=== PATIENT | female | born 1950 | race Caucasian/White ===

== ENCOUNTER 2018-06-06 19:48 | Inpatient (IN) | payer MEDICARE ==
[~2018-06-06] VITALS: Ht 167.6 cm; Wt 60.0 kg
[2018-06-06 20:26] LABS: HCT (SEDRATE) 48.3 % (34.6-47.8)
[2018-06-06 20:27] LABS: ALANINE AMINOTRANSFERASE 36 U/L (12-78); ANION GAP 5 mmol/L (5-15); BASOPHILS # (AUTO) 0.26 x10^3/uL (0-0.1); BASOPHILS % (AUTO) 2 % (0-1); C-REACTIVE PROTEIN, QUANT 0.13 mg/dL (0.02-0.49); CALCIUM 8.6 mg/dL (8.5-10.1); CHLORIDE 107 mmol/L (98-107); CREATININE 0.85 mg/dL (0.55-1.02); EOSINOPHILS # (AUTO) 0.22 x10^3/uL (0-0.4); EOSINOPHILS % (AUTO) 2 % (1-7); LYMPHOCYTES # (AUTO) 3.24 x10^3/uL (1-3.4); LYMPHOCYTES % (AUTO) 27 % (22-44); MD NO; MEAN CORPUSCULAR HEMOGLOBIN 32.2 pg (27.0-34.8); MEAN CORPUSCULAR HGB CONC 34.1 g/dL (32.4-35.8); MEAN CORPUSCULAR VOLUME 94.6 fL (80-100); MEAN PLATELET VOLUME 8.7 fL (7.4-10.4); MONOCYTES # (AUTO) 0.99 x10^3/uL (0.2-0.8); MONOCYTES % (AUTO) 8 % (2-9); NEUTROPHILS # (AUTO) 7.38 x10^3/uL (1.8-6.8); NEUTROPHILS % (AUTO) 61 % (42-75); PLATELET COUNT 261 x10^3/uL (130-400); RED BLOOD COUNT 5.09 x10^6/uL (3.82-5.3); RED CELL DISTRIBUTION WIDTH 13.6 % (9.6-15.2)
[2018-06-06 20:30] LABS: ALKALINE PHOSPHATASE 110 U/L (45-117); BILIRUBIN,TOTAL 0.6 mg/dL (0.2-1.0); TOTAL PROTEIN 6.8 g/dL (6.4-8.2)
[2018-06-06] MEDS ORDERED: ALPR-475 PO (21:09)
[2018-06-06] MEDS ORDERED: OXYC10TA6 PO (21:09)
[2018-06-06] MEDS ORDERED: MORP30TA81 PO (21:10)
[2018-06-06] MEDS ORDERED: RIVA20TA PO (21:10)
[2018-06-06] MEDS ORDERED: HYDR25TA6 PO (21:10)
[2018-06-06] MEDS ORDERED: METF500T17 PO (21:10)
[2018-06-06] MEDS ORDERED: METO25TA35 PO (21:10)
[2018-06-06] MEDS ORDERED: ENAL20TA PO (21:10)
[2018-06-06] MEDS ORDERED: DRON400T PO (21:30)
[2018-06-06] MEDS ORDERED: SODIUM CHLORIDE FLUSH 10ML SYR IVF PRN (22:00)
[2018-06-06 23:00] VITALS: BP 113/65
[2018-06-06] MEDS ORDERED: ENALAPRILAT 1.25 MG/ML, 2ML IVPush PRN (23:00)
[2018-06-06] MEDS ORDERED: ENOXAPARIN 40 MG/0.4 ML SQ SCH (23:00)
[2018-06-06] MEDS ORDERED: ONDANSETRON ODT 4 MG PO PRN (23:00)
[2018-06-06] MEDS ORDERED: ACETAMINOPHEN 325 MG TABLET PO PRN (23:00)
[2018-06-06] MEDS ORDERED: CEFTRIAXONE PMX 1GM/50ML 50 ML IV SCH (23:00)
[2018-06-06] MEDS ORDERED: DOCUSATE 100 MG CAPSULE PO PRN (23:00)
[2018-06-06] MEDS ORDERED: ENOXAPARIN MC SCH (23:30)
[2018-06-06] MEDS ORDERED: RIVAROXABAN MC SCH (23:30)
[2018-06-06] MEDS: METOPROLOL TARTRATE 25 MG TABLET PO SCH (23:55)
[2018-06-06] MEDS: ENALAPRIL 20MG TABLET PO SCH (23:55)
[2018-06-07] MEDS: DRONEDARONE 400MG TABLET PO SCH ×3 (00:08→20:16)
[2018-06-07 01:17] VITALS: BP 129/74
[2018-06-07 06:51] VITALS: BP 105/63
[2018-06-07] MEDS: ENALAPRIL 20MG TABLET PO SCH ×2 (08:36→20:16)
[2018-06-07] MEDS: HYDROCHLOROTHIAZIDE 25 MG TABLET PO SCH (08:36)
[2018-06-07] MEDS: METOPROLOL TARTRATE 25 MG TABLET PO SCH ×2 (08:36→20:15)
[2018-06-07] MEDS: OXYcodone IR 5MG TABLET PO SCH ×2 (08:50→20:55)
[2018-06-07] MEDS ORDERED: RIVAROXABAN 20 MG TABLET PO SCH (09:00)
[2018-06-07 10:51] LABS: CHLORIDE 107 mmol/L (98-107)
[2018-06-07 10:52] LABS: BASOPHILS # (AUTO) 0.06 x10^3/uL (0-0.1); BASOPHILS % (AUTO) 1 % (0-1); EOSINOPHILS # (AUTO) 0.23 x10^3/uL (0-0.4); EOSINOPHILS % (AUTO) 2 % (1-7); LYMPHOCYTES % (AUTO) 20 % (22-44); MD NO; MEAN CORPUSCULAR HEMOGLOBIN 31.7 pg (27.0-34.8); MEAN CORPUSCULAR HGB CONC 33.4 g/dL (32.4-35.8); MEAN CORPUSCULAR VOLUME 94.9 fL (80-100); MEAN PLATELET VOLUME 8.4 fL (7.4-10.4); MONOCYTES # (AUTO) 0.64 x10^3/uL (0.2-0.8); MONOCYTES % (AUTO) 7 % (2-9); NEUTROPHILS # (AUTO) 6.65 x10^3/uL (1.8-6.8); NEUTROPHILS % (AUTO) 70 % (42-75); PLATELET COUNT 238 x10^3/uL (130-400); RED BLOOD COUNT 4.78 x10^6/uL (3.82-5.3); RED CELL DISTRIBUTION WIDTH 13.4 % (9.6-15.2)
[2018-06-07] MEDS ORDERED: DEXTROSE 4 GM TAB.CHEW PO PRN (11:00)
[2018-06-07] MEDS: INSULIN LISPRO 100 UNITS/ML, PEN SQ-INSULIN SCH ×3 (11:00→20:54)
[2018-06-07] MEDS: SODIUM CHLORIDE FLUSH 10ML SYR IVF SCH ×2 (11:00→20:17)
[2018-06-07] MEDS ORDERED: GLUCAGON 1 MG IM PRN (11:00)
[2018-06-07] MEDS ORDERED: DEXTROSE 50%, 50ML SYRINGE IVPush PRN (11:00)
[2018-06-07 11:07] LABS: ALANINE AMINOTRANSFERASE 34 U/L (12-78); ALBUMIN 2.8 g/dL (3.4-5.0); ALKALINE PHOSPHATASE 97 U/L (45-117); ANION GAP 6 mmol/L (5-15); BILIRUBIN,TOTAL 0.6 mg/dL (0.2-1.0); C-REACTIVE PROTEIN, QUANT 0.08 mg/dL (0.02-0.49); CALCIUM 8.4 mg/dL (8.5-10.1); CREATININE 0.74 mg/dL (0.55-1.02); TOTAL PROTEIN 6.4 g/dL (6.4-8.2)
[2018-06-07] MEDS ORDERED: PHARMACOKINETIC CONSULTATION MC ONE (11:30)
[2018-06-07] MEDS ORDERED: PHARMACOKINETIC MONITORING MC PRN (11:30)
[2018-06-07] MEDS ORDERED: VANCOMYCIN PER PHARMACY MC PRN (12:00)
[2018-06-07 12:30] LABS: HEMOGLOBIN A1C 8.4 % (4.2-6.3)
[2018-06-07] MEDS: AMPICILLIN/SULBACTAM 3 GM in SODIUM CHLORIDE 0.9% 100 ML IV SCH ×2 (12:33→18:32)
[2018-06-07 13:54] VITALS: BP 119/74
[2018-06-07] MEDS: VANCOMYCIN 1,200 MG in SODIUM CHLORIDE 0.9% 250 ML IV SCH ×2 (13:59→14:29)
[2018-06-07 19:33] VITALS: BP 139/64
[2018-06-08] MEDS: AMPICILLIN/SULBACTAM 3 GM in SODIUM CHLORIDE 0.9% 100 ML IV SCH ×4 (00:48→19:30)
[2018-06-08 03:57] VITALS: BP 147/63
[2018-06-08] MEDS: INSULIN LISPRO 100 UNITS/ML, PEN SQ-INSULIN SCH ×4 (06:27→21:08)
[2018-06-08 07:17] VITALS: BP 137/65
[2018-06-08] MEDS: SODIUM CHLORIDE FLUSH 10ML SYR IVF SCH ×2 (09:00→20:57)
[2018-06-08 09:43] LABS: INTERNATIONAL NORMALIZED RATIO 1.16 (0.93-1.1); PROTHROMBIN TIME 11.9 Seconds (9.6-11.5)
[2018-06-08] MEDS: DRONEDARONE 400MG TABLET PO SCH ×2 (09:45→20:58)
[2018-06-08] MEDS: OXYcodone IR 5MG TABLET PO SCH ×2 (09:45→20:58)
[2018-06-08] MEDS: ENALAPRIL 20MG TABLET PO SCH ×2 (09:46→20:58)
[2018-06-08] MEDS: METOPROLOL TARTRATE 25 MG TABLET PO SCH ×2 (09:46→20:58)
[2018-06-08] MEDS: HYDROCHLOROTHIAZIDE 25 MG TABLET PO SCH (09:47)
[2018-06-08] MEDS ORDERED: DEXAMETHASONE 4 MG/ML, 1ML ONE (11:45)
[2018-06-08] MEDS ORDERED: PROPOFOL 10 MG/ML, 20ML ONE (11:45)
[2018-06-08] MEDS ORDERED: ONDANSETRON 2MG/ML, 2ML ONE (11:45)
[2018-06-08] MEDS ORDERED: FENTANYL PF 100 MCG/2ML ONE (11:46)
[2018-06-08] MEDS ORDERED: ALBUTEROL SULFATE 2.5 MG/3 ML NPPB PRN (12:30)
[2018-06-08] MEDS ORDERED: PROMETHAZINE 25 MG/ML, 1ML IV PRN (12:30)
[2018-06-08] MEDS ORDERED: HYDROmorphone 1 MG/ML, 1ML IV PRN (12:30)
[2018-06-08] MEDS ORDERED: OXYcodone 5 MG/5 ML ORAL.SOL UDC PO PRN (12:30)
[2018-06-08] MEDS ORDERED: ACETAMINOPHEN 325 MG TABLET PO PRN (12:30)
[2018-06-08] MEDS ORDERED: FENTANYL PF 100 MCG/2ML IV PRN (12:30)
[2018-06-08] MEDS ORDERED: hydrALAzine 20 MG/ML, 1ML IV PRN (12:30)
[2018-06-08] MEDS ORDERED: LABETALOL 5MG/ML, 20ML IV PRN (12:30)
[2018-06-08] MEDS ORDERED: OXYcodone 5 MG/5 ML ORAL.SOL UDC ONE (12:51)
[2018-06-08] MEDS: VANCOMYCIN 1,200 MG in SODIUM CHLORIDE 0.9% 250 ML IV SCH (15:02)
[2018-06-08 19:09] VITALS: BP 117/46
[2018-06-08 23:45] VITALS: BP 141/80
[2018-06-09] MEDS: AMPICILLIN/SULBACTAM 3 GM in SODIUM CHLORIDE 0.9% 100 ML IV SCH (01:48)
[2018-06-09 03:55] VITALS: BP 110/60
[2018-06-09 07:27] VITALS: BP 126/66
[2018-06-09] MEDS: RIVAROXABAN 20 MG TABLET PO SCH (08:26)
[2018-06-09] MEDS: PIPERACILLIN/TAZO/PMX 3.375GM 50 ML IV SCH ×3 (08:26→20:18)
[2018-06-09] MEDS: OXYcodone IR 5MG TABLET PO SCH ×2 (08:26→20:19)
[2018-06-09] MEDS: DRONEDARONE 400MG TABLET PO SCH ×2 (08:26→20:20)
[2018-06-09] MEDS: ENALAPRIL 20MG TABLET PO SCH ×2 (08:27→20:22)
[2018-06-09] MEDS: METOPROLOL TARTRATE 25 MG TABLET PO SCH ×2 (08:27→20:19)
[2018-06-09] MEDS: HYDROCHLOROTHIAZIDE 25 MG TABLET PO SCH (08:27)
[2018-06-09] MEDS: INSULIN LISPRO 100 UNITS/ML, PEN SQ-INSULIN SCH ×4 (08:28→20:24)
[2018-06-09] MEDS: SODIUM CHLORIDE FLUSH 10ML SYR IVF SCH ×2 (08:29→20:18)
[2018-06-09] MEDS: INSULIN GLARGINE 100 UNITS/ML, PEN SQ-INSULIN SCH ×2 (09:25→20:23)
[2018-06-09] MEDS: GABAPENTIN 100 MG CAPSULE PO SCH ×3 (09:26→20:19)
[2018-06-09] MEDS: VANCOMYCIN 1,200 MG in SODIUM CHLORIDE 0.9% 250 ML IV SCH (14:24)
[2018-06-09 15:00] VITALS: BP 90/47
[2018-06-09 18:42] VITALS: BP 119/60
[2018-06-10 00:11] VITALS: BP 134/65
[2018-06-10] MEDS: PIPERACILLIN/TAZO/PMX 3.375GM 50 ML IV SCH ×4 (02:33→20:40)
[2018-06-10 05:06] LABS: BASOPHILS % (AUTO) 1 % (0-1); EOSINOPHILS # (AUTO) 0.17 x10^3/uL (0-0.4); EOSINOPHILS % (AUTO) 1 % (1-7); LYMPHOCYTES # (AUTO) 3.75 x10^3/uL (1-3.4); LYMPHOCYTES % (AUTO) 31 % (22-44); MD NO; MEAN CORPUSCULAR HEMOGLOBIN 31.7 pg (27.0-34.8); MEAN CORPUSCULAR HGB CONC 33.6 g/dL (32.4-35.8); MEAN CORPUSCULAR VOLUME 94.3 fL (80-100); MEAN PLATELET VOLUME 8.6 fL (7.4-10.4); MONOCYTES # (AUTO) 0.87 x10^3/uL (0.2-0.8); MONOCYTES % (AUTO) 7 % (2-9); NEUTROPHILS # (AUTO) 7.12 x10^3/uL (1.8-6.8); NEUTROPHILS % (AUTO) 59 % (42-75); PLATELET COUNT 229 x10^3/uL (130-400); RED BLOOD COUNT 4.88 x10^6/uL (3.82-5.3); RED CELL DISTRIBUTION WIDTH 13.6 % (9.6-15.2)
[2018-06-10 05:09] LABS: CREATININE 0.64 mg/dL (0.55-1.02)
[2018-06-10] MEDS: INSULIN LISPRO 100 UNITS/ML, PEN SQ-INSULIN SCH ×4 (06:30→20:46)
[2018-06-10 07:24] VITALS: BP 134/81
[2018-06-10] MEDS: DRONEDARONE 400MG TABLET PO SCH ×2 (08:10→20:43)
[2018-06-10] MEDS: SODIUM CHLORIDE FLUSH 10ML SYR IVF SCH ×2 (08:10→20:44)
[2018-06-10] MEDS: GABAPENTIN 300 MG CAPSULE PO SCH ×3 (08:10→20:42)
[2018-06-10] MEDS: HYDROCHLOROTHIAZIDE 25 MG TABLET PO SCH (08:11)
[2018-06-10] MEDS: METOPROLOL TARTRATE 25 MG TABLET PO SCH ×2 (08:11→20:41)
[2018-06-10] MEDS: ENALAPRIL 20MG TABLET PO SCH ×2 (08:11→20:41)
[2018-06-10] MEDS: RIVAROXABAN 20 MG TABLET PO SCH (08:11)
[2018-06-10] MEDS: OXYcodone IR 5MG TABLET PO SCH ×2 (08:11→20:45)
[2018-06-10] MEDS: INSULIN GLARGINE 100 UNITS/ML, PEN SQ-INSULIN SCH ×2 (08:12→20:45)
[2018-06-10 13:43] VITALS: BP 130/60
[2018-06-10] MEDS: VANCOMYCIN 1,200 MG in SODIUM CHLORIDE 0.9% 250 ML IV SCH (14:44)
[2018-06-10 19:52] VITALS: BP 130/82
[2018-06-10 21:57] LABS: CLOSTRIDIUM DIFFICILE ANTIGEN POSITIVE; CLOSTRIDIUM DIFFICILE TOXIN NEGATIVE (Negative)
[2018-06-11] MEDS: VANCOMYCIN PMX 1GM/200ML 200 ML IV SCH ×2 (02:00→14:26)
[2018-06-11] MEDS: PIPERACILLIN/TAZO/PMX 3.375GM 50 ML IV SCH ×4 (03:18→20:51)
[2018-06-11 04:07] VITALS: BP 139/83
[2018-06-11] MEDS: LACTOBACILLUS CHEW TABLET PO SCH ×4 (04:48→20:49)
[2018-06-11 05:25] LABS: BASOPHILS # (AUTO) 0.07 x10^3/uL (0-0.1); BASOPHILS % (AUTO) 1 % (0-1); EOSINOPHILS % (AUTO) 2 % (1-7); LYMPHOCYTES % (AUTO) 32 % (22-44); MD NO; MEAN CORPUSCULAR HEMOGLOBIN 31.4 pg (27.0-34.8); MEAN CORPUSCULAR HGB CONC 33.5 g/dL (32.4-35.8); MEAN CORPUSCULAR VOLUME 93.8 fL (80-100); MEAN PLATELET VOLUME 8.3 fL (7.4-10.4); MONOCYTES # (AUTO) 0.78 x10^3/uL (0.2-0.8); MONOCYTES % (AUTO) 8 % (2-9); NEUTROPHILS # (AUTO) 5.28 x10^3/uL (1.8-6.8); NEUTROPHILS % (AUTO) 57 % (42-75); PLATELET COUNT 242 x10^3/uL (130-400); RED BLOOD COUNT 5.05 x10^6/uL (3.82-5.3); RED CELL DISTRIBUTION WIDTH 13.1 % (9.6-15.2)
[2018-06-11 07:08] VITALS: BP 152/75
[2018-06-11] MEDS: INSULIN LISPRO 100 UNITS/ML, PEN SQ-INSULIN SCH ×4 (07:44→20:49)
[2018-06-11] MEDS: SODIUM CHLORIDE FLUSH 10ML SYR IVF SCH ×2 (09:00→20:51)
[2018-06-11] MEDS ORDERED: INSULIN GLARGINE 100 UNITS/ML, PEN SQ-INSULIN SCH (09:00)
[2018-06-11] MEDS: GABAPENTIN 300 MG CAPSULE PO SCH ×3 (09:25→20:50)
[2018-06-11] MEDS: OXYcodone IR 5MG TABLET PO SCH ×2 (09:25→20:51)
[2018-06-11] MEDS: ENALAPRIL 20MG TABLET PO SCH ×2 (09:25→20:50)
[2018-06-11] MEDS: METOPROLOL TARTRATE 25 MG TABLET PO SCH ×2 (09:25→20:50)
[2018-06-11] MEDS: HYDROCHLOROTHIAZIDE 25 MG TABLET PO SCH (09:26)
[2018-06-11] MEDS: DRONEDARONE 400MG TABLET PO SCH ×2 (09:26→20:52)
[2018-06-11] MEDS: RIVAROXABAN 20 MG TABLET PO SCH (09:26)
[2018-06-11] MEDS: VANCOMYCIN 50 MG/ML ORAL SUSP PO SCH ×3 (12:06→23:15)
[2018-06-11 12:28] VITALS: BP 127/74
[2018-06-11 18:50] VITALS: BP 163/66
[2018-06-11] MEDS: SODIUM CHLORIDE 0.9% 1,000 ML IV SCH (19:30)
[2018-06-11] MEDS: INSULIN GLARGINE 100 UNITS/ML, PEN SQ-INSULIN SCH (20:49)
[2018-06-12] MEDS: VANCOMYCIN PMX 1GM/200ML 200 ML IV SCH ×2 (02:15→14:29)
[2018-06-12 03:12] VITALS: BP 125/60
[2018-06-12] MEDS: PIPERACILLIN/TAZO/PMX 3.375GM 50 ML IV SCH ×4 (03:22→21:20)
[2018-06-12] MEDS: SODIUM CHLORIDE 0.9% 1,000 ML IV SCH ×2 (03:23→21:31)
[2018-06-12] MEDS: VANCOMYCIN 50 MG/ML ORAL SUSP PO SCH ×4 (04:53→23:11)
[2018-06-12] MEDS: INSULIN LISPRO 100 UNITS/ML, PEN SQ-INSULIN SCH ×4 (07:00→21:32)
[2018-06-12] MEDS: LACTOBACILLUS CHEW TABLET PO SCH ×3 (08:25→21:19)
[2018-06-12] MEDS: HYDROCHLOROTHIAZIDE 25 MG TABLET PO SCH (08:26)
[2018-06-12] MEDS: OXYcodone IR 5MG TABLET PO SCH ×2 (08:26→21:18)
[2018-06-12] MEDS: GABAPENTIN 300 MG CAPSULE PO SCH ×3 (08:27→21:19)
[2018-06-12] MEDS: RIVAROXABAN 20 MG TABLET PO SCH (08:27)
[2018-06-12] MEDS: DRONEDARONE 400MG TABLET PO SCH ×2 (08:29→21:18)
[2018-06-12] MEDS: ENALAPRIL 20MG TABLET PO SCH ×2 (08:29→21:19)
[2018-06-12 08:37] VITALS: BP 149/63
[2018-06-12] MEDS: METOPROLOL TARTRATE 25 MG TABLET PO SCH ×2 (08:42→21:21)
[2018-06-12] MEDS: INSULIN GLARGINE 100 UNITS/ML, PEN SQ-INSULIN SCH ×2 (08:53→21:33)
[2018-06-12] MEDS ORDERED: EYE WASH SOLUTION 120ML EACHEYE PRN (09:00)
[2018-06-12] MEDS: SODIUM CHLORIDE FLUSH 10ML SYR IVF SCH ×2 (09:00→21:21)
[2018-06-12 14:43] VITALS: BP 131/62
[2018-06-12 20:20] VITALS: BP 151/59
[2018-06-13] MEDS: VANCOMYCIN PMX 1GM/200ML 200 ML IV SCH (02:05)
[2018-06-13] MEDS: PIPERACILLIN/TAZO/PMX 3.375GM 50 ML IV SCH (03:22)
[2018-06-13 04:22] VITALS: BP 148/96
[2018-06-13 05:33] LABS: BASOPHILS # (AUTO) 0.09 x10^3/uL (0-0.1); BASOPHILS % (AUTO) 1 % (0-1); EOSINOPHILS # (AUTO) 0.32 x10^3/uL (0-0.4); EOSINOPHILS % (AUTO) 3 % (1-7); LYMPHOCYTES # (AUTO) 3.31 x10^3/uL (1-3.4); LYMPHOCYTES % (AUTO) 32 % (22-44); MD NO; MEAN CORPUSCULAR HEMOGLOBIN 32.2 pg (27.0-34.8); MEAN CORPUSCULAR HGB CONC 33.9 g/dL (32.4-35.8); MEAN PLATELET VOLUME 8.6 fL (7.4-10.4); MONOCYTES # (AUTO) 0.79 x10^3/uL (0.2-0.8); MONOCYTES % (AUTO) 8 % (2-9); NEUTROPHILS # (AUTO) 5.75 x10^3/uL (1.8-6.8); NEUTROPHILS % (AUTO) 56 % (42-75); PLATELET COUNT 243 x10^3/uL (130-400); RED BLOOD COUNT 4.73 x10^6/uL (3.82-5.3); RED CELL DISTRIBUTION WIDTH 13.3 % (9.6-15.2)
[2018-06-13 05:38] LABS: CHLORIDE 108 mmol/L (98-107)
[2018-06-13 05:47] LABS: ALANINE AMINOTRANSFERASE 36 U/L (12-78); ALBUMIN 2.6 g/dL (3.4-5.0); ALKALINE PHOSPHATASE 80 U/L (45-117); ANION GAP 9 mmol/L (5-15); CALCIUM 8.4 mg/dL (8.5-10.1); CREATININE 0.61 mg/dL (0.55-1.02); TOTAL PROTEIN 6.1 g/dL (6.4-8.2)
[2018-06-13] MEDS: VANCOMYCIN 50 MG/ML ORAL SUSP PO SCH (05:56)
[2018-06-13] MEDS: INSULIN LISPRO 100 UNITS/ML, PEN SQ-INSULIN SCH (05:56)
[2018-06-13 07:55] VITALS: BP 175/61
[2018-06-13] MEDS ORDERED: CEPHALEXIN 500 MG CAPSULE PO SCH (08:00)
[2018-06-13] MEDS ORDERED: metroNIDAZOLE 500 MG TABLET PO SCH (08:00)
[2018-06-13] MEDS: LACTOBACILLUS CHEW TABLET PO SCH (08:59)
[2018-06-13] MEDS: ENALAPRIL 20MG TABLET PO SCH (08:59)
[2018-06-13] MEDS: MUPIROCIN OINT 2%, 22GM TP SCH ×2 (09:00→10:04)
[2018-06-13] MEDS: DRONEDARONE 400MG TABLET PO SCH (09:00)
[2018-06-13] MEDS: SODIUM CHLORIDE FLUSH 10ML SYR IVF SCH (09:00)
[2018-06-13] MEDS: GABAPENTIN 300 MG CAPSULE PO SCH (09:01)
[2018-06-13] MEDS: METOPROLOL TARTRATE 25 MG TABLET PO SCH (09:01)
[2018-06-13] MEDS: RIVAROXABAN 20 MG TABLET PO SCH (09:01)
[2018-06-13] MEDS: HYDROCHLOROTHIAZIDE 25 MG TABLET PO SCH (09:01)
[2018-06-13] MEDS: OXYcodone IR 5MG TABLET PO SCH (09:02)
[2018-06-13] MEDS: INSULIN GLARGINE 100 UNITS/ML, PEN SQ-INSULIN SCH (09:03)
[2018-06-13] MEDS ORDERED: GABA300C10 PO (10:40)
[2018-06-13] MEDS ORDERED: CEPH-376 PO (10:40)
[2018-06-13] MEDS ORDERED: INSU100I13 SQ-INSULIN ×2 (10:40)
[2018-06-13] MEDS ORDERED: METR500T PO (10:40)
== END 2018-06-13 12:15 | disposition home health service (06) | DRG 617 ==
LOC: ED 20:35 → EDIP 21:53 → 4NOR 22:55
PROVIDERS: ADMIT Hospitalist; ATTEND Hospitalist
PROC: 0Y6Q0Z0 Detachment at Left 1st Toe, Complete, Open Approach (ICD-10-PCS; principal; 2018-06-08 11:30)
DX: E11.621 Type 2 diabetes mellitus with foot ulcer (principal); A04.72 Enterocolitis due to Clostridium difficile, not specified as recurrent; M86.8X7 Other osteomyelitis, ankle and foot; E44.0 Moderate protein-calorie malnutrition; E11.69 Type 2 diabetes mellitus with other specified complication; I11.9 Hypertensive heart disease without heart failure; L97.529 Non-pressure chronic ulcer of other part of left foot with unspecified severity; F17.210 Nicotine dependence, cigarettes, uncomplicated; I48.2 Chronic atrial fibrillation; Z79.01 Long term (current) use of anticoagulants; Z79.891 Long term (current) use of opiate analgesic
CPT/HCPCS: 36415; 80053; 80202; 82565; 82962; 83036; 83605; 84520; 85025; 85610; 85651; 86140; 87040; 87070; 87075; 87102; 87106; 87116; 87205; 87206; 87324; 88305; 96374; G0378; J0295; J0696; J1100; J2405; J2543; J2704; J3010; J3370; J1815; J7030; J7050

== ENCOUNTER → 2018-08-15 | Outpatient (CLI) | payer MEDICARE ==
[~2018-08-15] MED LIST: ALPR-475 PO; CEPH-376 PO; DRON400T PO; ENAL20TA PO; GABA300C10 PO; HYDR25TA6 PO; INSU100I13 SQ-INSULIN; METF500T17 PO; METO25TA35 PO; METR500T PO; MORP30TA81 PO; OXYC10TA6 PO; RIVA20TA PO
== END | disposition home or self-care (01) ==
LOC: WOUND 08:58
PROVIDERS: ATTEND Podiatrist Foot & Ankle Surgery
DX: E11.621 Type 2 diabetes mellitus with foot ulcer (principal); L97.524 Non-pressure chronic ulcer of other part of left foot with necrosis of bone; L97.511 Non-pressure chronic ulcer of other part of right foot limited to breakdown of skin; I48.2 Chronic atrial fibrillation; I11.9 Hypertensive heart disease without heart failure; E11.69 Type 2 diabetes mellitus with other specified complication; M86.8X7 Other osteomyelitis, ankle and foot; F17.210 Nicotine dependence, cigarettes, uncomplicated; Z79.01 Long term (current) use of anticoagulants; Z79.891 Long term (current) use of opiate analgesic
CPT/HCPCS: 11042; 11044; 87070; 87077; 87186; 87205; G0463

== ENCOUNTER 2018-08-29 09:40 | Outpatient (CLI) | payer MEDICARE | END 2018-08-29 23:59 | disposition home or self-care (01) | LOC: WOUND 09:40 | PROVIDERS: ATTEND Podiatrist Foot & Ankle Surgery | DX: E11.622 Type 2 diabetes mellitus with other skin ulcer (principal); L97.524 Non-pressure chronic ulcer of other part of left foot with necrosis of bone; E11.69 Type 2 diabetes mellitus with other specified complication; M86.8X7 Other osteomyelitis, ankle and foot; I11.0 Hypertensive heart disease with heart failure; I50.9 Heart failure, unspecified; I48.2 Chronic atrial fibrillation; Z87.891 Personal history of nicotine dependence | CPT/HCPCS: 15275; G0463; Q4132 ==

== ENCOUNTER 2018-08-29 11:06 | Outpatient (CLI) | payer MEDICARE | END 2018-08-29 23:59 | disposition home or self-care (01) | LOC: CFH 11:06 | PROVIDERS: ATTEND Podiatrist Foot & Ankle Surgery | DX: E11.621 Type 2 diabetes mellitus with foot ulcer (principal) | CPT/HCPCS: 71046 ==

== ENCOUNTER → 2018-08-30 | Outpatient (CLI) | payer MEDICARE | END | disposition home or self-care (01) | LOC: CVU 12:25 | PROVIDERS: ATTEND Podiatrist Foot & Ankle Surgery | DX: I70.0 Atherosclerosis of aorta (principal); I70.202 Unspecified atherosclerosis of native arteries of extremities, left leg; I70.291 Other atherosclerosis of native arteries of extremities, right leg; I10 Essential (primary) hypertension; E11.621 Type 2 diabetes mellitus with foot ulcer; I48.91 Unspecified atrial fibrillation | CPT/HCPCS: 93922; 93925; 93978 ==

== ENCOUNTER → 2018-09-13 | Outpatient (CLI) | payer MEDICARE | END | disposition home or self-care (01) | LOC: WOUND 13:03 | PROVIDERS: ATTEND Family Medicine | DX: T87.81 Dehiscence of amputation stump (principal); E11.621 Type 2 diabetes mellitus with foot ulcer; L97.526 Non-pressure chronic ulcer of other part of left foot with bone involvement without evidence of necrosis; E11.69 Type 2 diabetes mellitus with other specified complication; M86.8X7 Other osteomyelitis, ankle and foot; E11.21 Type 2 diabetes mellitus with diabetic nephropathy; L84 Corns and callosities; I11.0 Hypertensive heart disease with heart failure; I50.9 Heart failure, unspecified; I48.2 Chronic atrial fibrillation; Z87.891 Personal history of nicotine dependence; Y83.5 Amputation of limb(s) as the cause of abnormal reaction of the patient, or of later complication, without mention of misadventure at the time of the procedure | CPT/HCPCS: G0463 ==

== ENCOUNTER → 2018-09-20 | Outpatient (CLI) | payer MEDICARE | END | disposition home or self-care (01) | LOC: WOUND 13:51 | PROVIDERS: ATTEND Family Medicine | DX: T87.81 Dehiscence of amputation stump (principal); E11.621 Type 2 diabetes mellitus with foot ulcer; L97.526 Non-pressure chronic ulcer of other part of left foot with bone involvement without evidence of necrosis; E11.69 Type 2 diabetes mellitus with other specified complication; M86.8X7 Other osteomyelitis, ankle and foot; E11.21 Type 2 diabetes mellitus with diabetic nephropathy; I11.0 Hypertensive heart disease with heart failure; I50.9 Heart failure, unspecified; L84 Corns and callosities; I48.2 Chronic atrial fibrillation; Z87.891 Personal history of nicotine dependence; Y83.5 Amputation of limb(s) as the cause of abnormal reaction of the patient, or of later complication, without mention of misadventure at the time of the procedure | CPT/HCPCS: G0463 ==